=== PATIENT | female | born 1995 | race Asian ===

== ENCOUNTER 2021-05-05 07:53 | Outpatient (CLI) | payer BC, SELFPAY ==
--- NOTE | ~2021-05-05 | MR_ITS ---
EXAMINATION: MR hip LT wo/w con DATE: 05/05/2021 09:26 INDICATION: Acute left hip pain. TECHNIQUE: Magnetic resonance imaging (MRI) of the left hip was performed without and with 12 mL Mult iHance intravenous contrast. Sequences included axial and coronal PD-weighted FS FSE, axial T1-weight ed FS FSE, and axial T1-weighted FSE of the pelvis. Sequences of the hip included 2D FIESTA, T1-weigh kena fast GRE, and axial, coronal, and sagittal PD-weighted FS FSE. Postcontrast sequences included pe lvic axial T1-weighted FS FSE and left hip coronal T1-weighted FS FSE. COMPARISON: None FINDINGS: Bones/cartilage: Bone alignment is normal. No fracture. There is normal femoral head/neck morphology bilaterally. The left hip joint cartilage is normal. Labrum: The left acetabular labrum is normal. Fluid: There is no hip joint effusion. There are trochanteric bursitis. Soft tissues: The hamstring origins are normal. The iliopsoas tendons are normal. The gluteus minimus and gluteus m edius tendons are normal. The musculature is normal. IMPRESSION: 1. No etiology for the patient's symptoms. Reviewed, dictated and finalized at location A.
[2021-05-05 08:29] LABS: Estimated Glomerular Filt Rate > 60
== END 2021-05-05 07:54 | disposition home or self-care (01) ==
PROVIDERS: PCP Internal Medicine Infectious Disease; Visit Provider Internal Medicine Infectious Disease
DX: M25.552 Pain in left hip (principal)
CPT/HCPCS: 73723; A9577